=== PATIENT | male | born 1960 | race Hispanic/Latino ===

== ENCOUNTER 2018-10-26 01:01 | Inpatient (IN) | payer MEDICARE ==
[2018-10-26 01:11] VITALS: O2SAT 99
--- NOTE | 2018-10-26 01:14 | ED PDOC ---
Psych Transfer Clearance - Clearance Statement Clearance Statement: Reviewed vital signs, lab results and transfer papers. Patient clinically stable for psychiatric admission.
[2018-10-26] MEDS ORDERED: Magnesium Hydroxide Susp 30 ml UD PO PRN (01:41)
[2018-10-26] MEDS ORDERED: DiphenhydrAMINE 50 mg/ml Inj IM PRN (01:41)
[2018-10-26] MEDS ORDERED: Alum-Mag Hydrox-Simethicone Susp (30 mL) PO PRN (01:41)
--- NOTE | 2018-10-26 02:04 | PCM.BM ---
<Grace Liangar - Last Filed: 10/26/18 02:04> Treatment Plan Problems - Problems identified on initial assessmt Hopelessness/Helplessness Date Initiated: 10/26/18 Time Initiated: 02:01 Assessment reference: NA Status: Active Priority: 1 Feeling of Worthlessness Date Initiated: 10/26/18 Time Initiated: 02:02 Assessment reference: NA Status: Active Priority: 2 Altered Sleep Patterns Date Initiated: 10/26/18 Time Initiated: 02:02 Assessment reference: NA Status: Active Priority: 3 Treatment assets and liabiliti Patient Assests: adapts well, cooperative, educated, resourceful, negotiates basic needs Patient Liabilities: live alone, financial problems, poor support system, relationship conflicts, substance abuse (marijuana use and alcohol abuse), legal issue (restraining order for assualt with ) - Milieu Protocol Maintain good personal hygiene: daily Encourage regular showers, daily Remind patient to perform daily oral care, daily Assist patient to perform ADL's Maintain personal safety: every shift Educate patient to report safety concerns to staff, every shift Monitor environment for contraband/sharps Medication safety: Monitor for expected outcome, potential side effects: every shift, Assess barriers to learning: every shift, Assess readiness for medication education: every shift <Larissa Huitron - Last Filed: 10/26/18 10:34> - Diagnosis (1) Major depressive disorder Status: Acute Interventions: Medication management, Individual and group therapy, Psychoeducation 10/26/18 10:34 (2) Alcohol abuse Status: Acute Interventions: Medication management, Individual and group therapy, Psychoeducation 10/26/18 10:34 <Anupama Garcia - Last Filed: 10/27/18 14:11> Treatment Plan Problems - Problems identified on initial assessmt Suicide Date Initiated: 10/27/18 Time Initiated: 13:54 Assessment reference: SW Status: Active (Pt continues to verbalize suicide ideation/thoughts due to unstable housing, financial issues and legal issues.) Family Contact Family involvement: Famliy/SO not involved Family contact: Other (Pt unable to contact spouse due to active restraining order. ) - Goals for Treatment Patient goals for treatment: Pt will imporve overall mood. Pt will be free of suicide ideation. Pt will be explore and resolve stress from familial conflicts. Pt will learn to cope with routine life stressors and take things for stride. Pt will learn to use meditation and relaxation techniques daily. Pt will develop strategies for thought distraction when reuminating on the past. Discharge/Continuing Care - Education Needs Education Needs: Patient Medication, Patient Diagnosis/Disease Process, Patient Coping Skills, Patient Community resources, Patient Activities of Daily Living, Patient Nutrition, Patient Uses of Medical Equipment, Patient Health Practices/Safety, Patient Personal Hygiene/Grooming - Discharge Discharge Criteria: Tolerates medication w/o severe side effects, Free of Suicidal thoughts, Free of agitation, Normal sleep pattern, Ability to care for self, Reduction of target symptoms Discharge to:: Care Home - Additional Comments 10/27/18 14:06 Pt discussed in team meeting. Pt did not attend team meeting due to being observed asleep and not able to be aroused. Prior to team meeting pt was anxious and Ativan offered. Pt agreeable to PRN. Reason for admission reviewed and discussed. Pt was a transfer from [facility] secondary to increased depression and suicide ideation with plan to hang himself with a t- shirt. Pt reported feeling hopeless and helpless due to several stressors. Pt reported he is currently homeless and has been staying on the street or in shelters. Pt reported recent legal issues - father in law and spouse filed a restraining order against pt. Pt reported financial issues due to lack of state of ID. Pt reported he is unable to withdrawn his money because he lost his wallet with the [employer] card and the bank will not permit him to withdrawn money bec ause he does not have any form of ID. Pt reported poor sleep and appetite as a result of unstable housing. Pt's medical and social issues reviewed. Pt's medications reviewed. Tx plan reviewed. SW to continue to follow case. - Treatment Team Participation Discussed with Family/SO: No Was Patient/Family/SO present at Treatment Team Meeting: No
--- NOTE | 2018-10-26 09:36 | PCM.PSYCH ---
Initial Psychiatric Evaluation - Initial Psychiatric Evaluation Type of Admission: Voluntary Legal Status: Capacity Chief Complaint (in patient's own words): "I'm having suicidal thoughts." Patient's Reaction to Hospitalization: HPI: 58 yo male w/ h/o depression, presents w/ worsening depression, suicidal ideation w/ plan to hang himself, feelings of hopelessness/helplessness, sleep/appetite disturbances in the context of non-compliance with medications, having a restraining order against him by his [id number] and being homeless. No AH/VH/paranoia/delusions/HI. +Poor self care and hygiene. No current signs/symptoms of ETOH withdrawal. PMHx: +Pacemaker, hypothyroid, HTN, chronic back pain PPHx: Denies h/o of suicide attempts; currently prescribed Lexapro 20 mg PO Daily, but patient has been non-compliant with medication SHx: , homeless, smokes 3/4 ppd; stopped drinking ETOH 5 days, was previously drinking 1 pint daily, various days a week; +intermittent marijuana abuse ALL: NKDA Current Medications: Active Medications Generic Name Dose Route Start Last Admin Trade Name Freq PRN Reason Stop Dose Admin Acetaminophen 650 mg 10/26/18 01:41 Tylenol 325mg Tab PO Q4 PRN for 4-7 pain Al Hydrox/Mg Hydrox/Simethicone 30 ml 10/26/18 01:41 Maalox Plus 30 Ml PO Q4 PRN Dyspepsia Clopidogrel Bisulfate 75 mg 10/26/18 09:30 Plavix PO DAILY NUVIA Diphenhydramine HCl 50 mg 10/26/18 01:41 Benadryl IM Q6 PRN Extrapyramidal S/S Unable PO Diphenhydramine HCl 50 mg 10/26/18 01:41 Benadryl PO Q6 PRN Extrapyramidal Symptoms Diphenhydramine HCl 50 mg 10/26/18 01:41 Benadryl PO HS PRN Sleep Escitalopram Oxalate 20 mg 10/26/18 09:30 Lexapro PO DAILY NUVIA Folic Acid 1 mg 10/26/18 09:30 Folic Acid PO DAILY [facility]IA Haloperidol 5 mg 10/26/18 01:41 Haldol PO Q4 PRN Agitation Haloperidol Lactate 5 mg 10/26/18 01:41 Haldol IM Q4 PRN Agitation, Unable to Take PO Lorazepam 2 mg 10/26/18 02:09 Ativan IM Q6 PRN Anxiety/Agitation,Unable PO Lorazepam 1 mg 10/26/18 02:09 Ativan PO Q6 PRN Anxiety/Agitation Magnesium Hydroxide 30 ml 10/26/18 01:41 Milk Of Magnesia PO HS PRN Constipation Multivitamins/Minerals 1 tab 10/26/18 09:30 Therapeutic-M Tab PO DAILY NUVIA Nicotine 1 patch 10/26/18 09:30 Nicoderm Cq TD DAILY N[facility] Thiamine HCl 100 mg 10/26/18 09:30 Vitamin B1 Tab PO DAILY N[facility] Past Psychiatric History - Past Psychiatric History Pertinent Medical Hx (Current Medical&Sleep Prob, Allergies): Allergies Allergy/AdvReac Type Severity Reaction Status Date / Time No Known Allergies Allergy Verified 10/26/18 01:11 No Known Home Med 10/26/18 Review of Systems - Psychiatric Psychiatric: As Per HPI, Abnormal Sleep Pattern, Anhedonia, Anxiety, Behavioral Changes, Change in Appetite, Depression, Difficulty Concentrating, Hopelessness, Irritability, Suicidal Ideation Mental Status Examination - Personal Presentation Personal Presentation: Looks older than stated age - Affect Affect: Depressed - Motor Activity Motor Activity: Calm - Reliability in Providing Information Reliability in Providing Information: Fair - Speech Speech: Organized, Coherent - Mood Mood: Depressed - Formal Thought Process Formal Thought Process: No Impairment - Hallucinations/Delusions Additional comments: No AH/VH/paranoia/delusions - Obsessions/Compulsions Obsessions: No Compulsions: No - Cognitive Functions Orientation: Person, Place, Situation, Time Sensorium: Alert Attention/Concentration: Attentive Estimate of Intelligence: Average Judgement: Intact, as evidence by: Insight regarding need for hospitalization Memory: Recent intact, as evidence by: Ability to recall events of the day - Risk Risk: Suicidal, Diminished functioning - Strength & Assets Inventory Strength & Assets Inventory: Cooperative - Limitations Limitations: Other (Homeless, Poverty) DSM 5 DX - DSM 5 DSM 5 Diagnosis: Major Depressive Disorder; Alcohol Use Disorder; Cannabis Use Disorder - Recommended/Plan of Treatment Treatment Recommendations and Plan of Treatment: Major Depressive Disorder; Alcohol Use Disorder; Cannabis Use Disorder -Admit to psychiatry unit -Individual and group therapy -Medicine consult -Nicotine patch -Restart Lexapro -PT screening -Thiamine/Folate/MVI -Disposition planning
[2018-10-26 09:59] LABS: BASO % 0.7 % (0.0-2.0); EOS # 0.1 K/uL (0.0-0.7); EOS % 2.1 % (0.0-4.0); HEMOGLOBIN 13.1 g/dL (12.0-18.0); LYMPH # 1.7 K/uL (1.0-4.3); LYMPH % 26.4 % (20.0-40.0); MEAN CELL VOLUME 99.9 fl (80.0-94.0); MEAN CORPUSCULAR HEMOGLOBIN 33.8 pg (27.0-31.0); MEAN CORPUSCULAR HGB CONC 33.9 g/dL (33.0-37.0); MEAN PLATELET VOLUME 7.2 fl (7.2-11.7); MONO # 0.7 K/uL (0.0-0.8); MONO % 11.3 % (0.0-10.0); NEUT # 3.8 K/uL (1.8-7.0); NEUT % 59.5 % (50.0-75.0); NRBC % 0.1 % (0.0-0.0); RBC 3.88 Mil/uL (4.40-5.90); RED CELL DISTRIBUTION WIDTH 16.1 % (11.5-14.5); WHITE BLOOD COUNT 6.3 K/uL (4.8-10.8)
[2018-10-26 10:29] LABS: ALB/GLOB RATIO 1.1 (1.0-2.1); ALBUMIN 3.4 g/dL (3.5-5.0); ALT/SGPT 19 U/L (21-72); AST/SGOT 35 U/L (17-59); BLOOD UREA NITROGEN 6 mg/dl (9-20); CALCIUM 9.1 mg/dL (8.4-10.2); GFR NON-AFRICAN AMERICAN > 60; HDL CHOLESTEROL 67 MG/DL (30-70)
[2018-10-26 10:40] LABS: LDL CHOLESTEROL 74 mg/dL (0-129)
[2018-10-26] MEDS: Multivitamin With Minerals Tab PO SCH (11:45)
--- NOTE | 2018-10-26 14:45 | CP.PCM.CON ---
History of Present Illness - History of Present Illness History of Present Illness: 58 yo male with history of CHF with AICD, HTN and depression admitted to psyche unit because of suicidal ideation. Review of Systems - Review of Systems All systems: reviewed and no additional remarkable complaints except (aside from those mentioned above, 12 point system review were negative by me) Past Patient History - Tetanus Immunizations Tetanus Immunization: Unknown - Past Social History Smoking Status: Heavy Smoker > 10 Cigarettes Daily Alcohol: > 2 Drinks/Day Home Situation {Lives}: Homeless - CARDIAC Hx Circulatory Problems: Yes (cardiomyopathy) - MUSCULOSKELETAL/RHEUMATOLOGICAL Hx Falls: Yes Other/Comment: pinched nerve - PSYCHIATRIC Hx Substance Use: Yes - ANESTHESIA Hx Anesthesia: Yes Hx Anesthesia Reactions: No Has any member of the family had a problem w/ anesthesia?: No Meds Allergies/Adverse Reactions: Allergies Allergy/AdvReac Type Severity Reaction Status Date / Time No Known Allergies Allergy Verified 10/26/18 01:11 - Medications Medications: Current Medications Acetaminophen (Tylenol 325mg Tab) 650 mg PO Q4 PRN PRN Reason: for 4-7 pain Al Hydrox/Mg Hydrox/Simethicone (Maalox Plus 30 Ml) 30 ml PO Q4 PRN PRN Reason: Dyspepsia Aspirin (Ecotrin) 81 mg PO DAILY [facility] Clopidogrel Bisulfate (Plavix) 75 mg PO DAILY [facility] Digoxin (Digoxin) 0.125 mg PO DAILY [facility] Diphenhydramine HCl (Benadryl) 50 mg IM Q6 PRN PRN Reason: Extrapyramidal S/S Unable PO Diphenhydramine HCl (Benadryl) 50 mg PO Q6 PRN PRN Reason: Extrapyramidal Symptoms Diphenhydramine HCl (Benadryl) 50 mg PO HS PRN PRN Reason: Sleep Escitalopram Oxalate (Lexapro) 20 mg PO DAILY [facility] Folic Acid (Folic Acid) 1 mg PO DAILY [facility] Last Admin: 10/26/18 11:45 Dose: 1 mg Haloperidol (Haldol) 5 mg PO Q4 PRN PRN Reason: Agitation Haloperidol Lactate (Haldol) 5 mg IM Q4 PRN PRN Reason: Agitation, Unable to Take PO Levothyroxine Sodium (Synthroid) 100 mcg PO DAILY [facility] Lorazepam (Ativan) 2 mg IM Q6 PRN PRN Reason: Anxiety/Agitation,Unable PO Lorazepam (Ativan) 0.5 mg PO Q6 PRN PRN Reason: Anxiety Last Admin: 10/26/18 11:44 Dose: 0.5 mg Losartan Potassium (Cozaar) 12.5 mg PO DAILY [facility] Magnesium Hydroxide (Milk Of Magnesia) 30 ml PO HS PRN PRN Reason: Constipation Metoprolol Succinate (Toprol Xl) 12.5 mg PO DAILY [facility] Multivitamins/Minerals (Therapeutic-M Tab) 1 tab PO DAILY [facility] Last Admin: 10/26/18 11:45 Dose: 1 tab Nicotine (Nicoderm Cq) 1 patch TD DAILY [facility] Last Admin: 10/26/18 11:46 Dose: 1 patch Spironolactone (Aldactone) 25 mg PO DAILY [facility] Thiamine HCl (Vitamin B1 Tab) 100 mg PO DAILY [facility] Last Admin: 10/26/18 11:45 Dose: 100 mg Physical Exam - Constitutional Appears: No Acute Distress - Head Exam Head Exam: ATRAUMATIC - Eye Exam Eye Exam: absent: Scleral icterus - ENT Exam ENT Exam: Mucous Membranes Moist - Neck Exam Neck exam: Negative for: Meningismus - Respiratory Exam Respiratory Exam: absent: Rales, Rhonchi, Wheezes, Respiratory Distress - Cardiovascular Exam Cardiovascular Exam: REGULAR RHYTHM, +S1, +S2 - GI/Abdominal Exam GI & Abdominal Exam: Soft. absent: Tenderness - Rectal Exam Rectal Exam: Deferred - Neurological Exam Neurological exam: Alert, Oriented x3 - Psychiatric Exam Psychiatric exam: Normal Affect - Skin Skin Exam: Dry, Intact Results - Vital Signs Recent Vital Signs: Last Vital Signs Temp 97.9 F 10/26/18 06:00 Pulse 99 H 10/26/18 06:00 Resp 19 10/26/18 06:00 BP 109/72 10/26/18 06:00 Pulse Ox 99 10/26/18 01:08 - Labs Result Diagrams: 10/26/18 09:54 10/26/18 09:54 Labs: Laboratory Results - last 24 hr 10/26/18 10/26/18 10/26/18 09:54 09:54 09:54 WBC 6.3 RBC 3.88 L Hgb 13.1 Hct 38.8 MCV 99.9 H MCH 33.8 H MCHC 33.9 RDW 16.1 H Plt Count 279 MPV 7.2 Neut % (Auto) 59.5 Lymph % (Auto) 26.4 Schleicher % (Auto) 11.3 H Eos % (Auto) 2.1 Baso % (Auto) 0.7 Neut # (Auto) 3.8 Lymph # (Auto) 1.7 Schleicher # (Auto) 0.7 Eos # (Auto) 0.1 Baso # (Auto) 0.0 Sodium 130 L Potassium 3.4 L Chloride 94 L Carbon Dioxide 28 Anion Gap 11 BUN 6 L Creatinine 0.6 L Est GFR ( Amer) > 60 Est GFR (Non-Af Amer) > 60 Random Glucose 150 H Hemoglobin A1c 5.2 Calcium 9.1 Total Bilirubin 0.5 AST 35 ALT 19 L Alkaline Phosphatase 96 Total Protein 6.4 Albumin 3.4 L Globulin 3.0 Albumin/Globulin Ratio 1.1 Triglycerides 75 Cholesterol 158 LDL Cholesterol Direct 74 HDL Cholesterol 67 TSH 3rd Generation 37.40 H Assessment & Plan (1) Suicidal ideation Status: Acute Comment: psyche is managing (2) HTN (hypertension) Status: Chronic Comment: BP stable. continue Lopressor
[2018-10-26 18:51] LABS: IRON 88 ug/dL (49-181)
[2018-10-26 19:02] LABS: % IRON SATURATION 37 % (20-55); TOTAL IRON BINDING CAPACITY 238 ug/dL (250-450)
[2018-10-26 19:11] LABS: T4 4.94 ug/dl (5.5-11.0)
[2018-10-27 00:30] LABS: SQUAMOUS EPITHIAL < 1 /hpf (0-5); URINE BACTERIA RARE (<OCC); URINE BILIRUBIN NEGATIVE (NEGATIVE); URINE BLOOD NEGATIVE (NEGATIVE); URINE CLARITY CLEAR (Clear); URINE COLOR YELLOW (YELLOW); URINE GLUCOSE (UA) NEG (NEGATIVE); URINE LEUKOCYTE ESTERASE NEG Leu/uL (Negative); URINE PROTEIN NEGATIVE (NEGATIVE); URINE UROBILINOGEN 0.2-1.0 mg/dL (0.2-1.0)
[2018-10-27] MEDS: Digoxin 125 mcg (0.125 mg) Tab PO SCH (09:20)
[2018-10-27] MEDS: Levothyroxine 100 MCG TAB PO SCH (09:21)
[2018-10-27] MEDS: Multivitamin With Minerals Tab PO SCH (09:21)
--- NOTE | 2018-10-27 10:00 | PCM.PYCHPN ---
Psychiatric Progress Note - Psychiatric Progress Note Patient seen today, length of contact: Pt evaluated, case discussed w/ team, chart reviewed Patient Chief Complaint: "I'm having suicidal thoughts." Problems Identified/Issues Discussed: Patient continues to report suicidal ideation w/ plan to hang himself or "do whatever I can." He cries spontaneously and reports depressed mood w/ feelings of hopelessness/helplessness. He reports sleep and appetite disturbances. Medication Change: Yes (Start Remeron 15 mg PO HS) Medical Record Reviewed: Yes Consults ordered or reviewed: Medicine consult Mental Status Examination - Cognitive Function Orientation: Person, Place, Situation, Time Memory: Intact Association: WNL Fund of Knowledge: [facility] Decription of patient's judgement and insights: Improving I/J - Mood Mood: Depressed - Affect Affect: Depressed - Speech Speech: Appropriate - Formal Thought Process Formal Thought Process: No Impairment Psychotic Thoughts and Behaviors: No AH/VH/paranoia/delusions - Suicidal Ideation Suicidal Ideation: No - Homicidal Ideation Homicidal Ideation: No Goal/Treatment Plan - Goal/Treatment Plan Need for Continued Stay: Remain at risks for inpatient hospitalization, Severe depression anxiety Progress Toward Problem(s) and Goals/Treatment Plan: Major Depressive Disorder; Alcohol Use Disorder; Cannabis Use Disorder -Individual and group therapy -Medicine consult appreciated -Nicotine patch -Continue Lexapro -Start Remeron -Thiamine/Folate/MVI -Ativan PRN; no current signs/symptoms of etoh withdrawal -Disposition planning
[2018-10-27] MEDS: Metoprolol Succinate 25 mg XL Tab PO SCH (14:49)
[2018-10-28] MEDS: Digoxin 125 mcg (0.125 mg) Tab PO SCH (08:47)
[2018-10-28] MEDS: Multivitamin With Minerals Tab PO SCH (08:49)
[2018-10-28] MEDS: Metoprolol Succinate 25 mg XL Tab PO SCH (08:50)
--- NOTE | 2018-10-28 09:20 | PCM.PYCHPN ---
Psychiatric Progress Note - Psychiatric Progress Note Patient seen today, length of contact: Pt evaluated, case discussed w/ team, chart reviewed Patient Chief Complaint: "I'm having suicidal thoughts." Problems Identified/Issues Discussed: Patient continues to report feeling depressed, anxious w/ feeling of hopelessness and intermittent suicidal ideation. He reports sleep and appetite disturbances. Medication Change: No Medical Record Reviewed: Yes Consults ordered or reviewed: Medicine consult Mental Status Examination - Cognitive Function Orientation: Person, Place, Situation, Time Memory: Intact Association: WNL Fund of Knowledge: [facility] Decription of patient's judgement and insights: Improving I/J - Mood Mood: Depressed - Affect Affect: Depressed - Speech Speech: Appropriate - Formal Thought Process Formal Thought Process: No Impairment Psychotic Thoughts and Behaviors: No AH/VH/paranoia/delusions - Suicidal Ideation Suicidal Ideation: Yes Plan: Ideation to hang himself - Homicidal Ideation Homicidal Ideation: No Goal/Treatment Plan - Goal/Treatment Plan Need for Continued Stay: Remain at risks for inpatient hospitalization, Severe depression anxiety Progress Toward Problem(s) and Goals/Treatment Plan: Major Depressive Disorder; Alcohol Use Disorder; Cannabis Use Disorder -Individual and group therapy -Medicine consult appreciated -Nicotine patch -Continue Lexapro -Continue Remeron -Thiamine/Folate/MVI -Ativan PRN; no current signs/symptoms of etoh withdrawal -Disposition planning Estimated Date of D/C: 11/01/18
[2018-10-28] MEDS: Levothyroxine 100 MCG TAB PO SCH (13:01)
[2018-10-29] MEDS: Digoxin 125 mcg (0.125 mg) Tab PO SCH (08:36)
[2018-10-29] MEDS: Multivitamin With Minerals Tab PO SCH (08:37)
[2018-10-29] MEDS: Levothyroxine 100 MCG TAB PO SCH (08:40)
[2018-10-29 08:45] LABS: HEMOGLOBIN 12.8 g/dL (12.0-18.0); MEAN CELL VOLUME 101.7 fl (80.0-94.0); MEAN CORPUSCULAR HEMOGLOBIN 33.7 pg (27.0-31.0); MEAN CORPUSCULAR HGB CONC 33.2 g/dL (33.0-37.0); RBC 3.8 Mil/uL (4.40-5.90); RED CELL DISTRIBUTION WIDTH 16.2 % (11.5-14.5); WHITE BLOOD COUNT 4.6 K/uL (4.8-10.8)
[2018-10-29 08:51] LABS: ALB/GLOB RATIO 1.1 (1.0-2.1); ALBUMIN 3.1 g/dL (3.5-5.0); ALT/SGPT 33 U/L (21-72); AST/SGOT 30 U/L (17-59); BLOOD UREA NITROGEN 8 mg/dl (9-20); CALCIUM 8.9 mg/dL (8.4-10.2); GFR NON-AFRICAN AMERICAN > 60
--- NOTE | 2018-10-29 09:04 | PCM.PYCHPN ---
Psychiatric Progress Note - Psychiatric Progress Note Patient seen today, length of contact: Pt evaluated, case discussed w/ team, chart reviewed Patient Chief Complaint: Depression Problems Identified/Issues Discussed: Patient continues to report feeling depressed and anxious, but he denies acute suicidal ideation/plan/intent. No adverse effects to medications reported. He continues to have constricted affect and feelings of hopelessness. Medication Change: No Medical Record Reviewed: Yes Consults ordered or reviewed: Medicine consult Mental Status Examination - Cognitive Function Orientation: Person, Place, Situation, Time Memory: Intact Association: WNL Fund of Knowledge: [facility] Decription of patient's judgement and insights: Improving I/J - Mood Mood: Depressed - Affect Affect: Constricted, Depressed - Speech Speech: Appropriate - Formal Thought Process Formal Thought Process: No Impairment Psychotic Thoughts and Behaviors: No AH/VH/paranoia/delusions - Suicidal Ideation Suicidal Ideation: No - Homicidal Ideation Homicidal Ideation: No Goal/Treatment Plan - Goal/Treatment Plan Need for Continued Stay: Remain at risks for inpatient hospitalization, Severe depression anxiety Progress Toward Problem(s) and Goals/Treatment Plan: Major Depressive Disorder; Alcohol Use Disorder; Cannabis Use Disorder -Individual and group therapy -Medicine consult appreciated -Nicotine patch -Continue Lexapro -Continue Remeron -Thiamine/Folate/MVI -Ativan PRN; no current signs/symptoms of etoh withdrawal -Disposition planning Estimated Date of D/C: 11/01/18
[2018-10-29] MEDS: Metoprolol Succinate 25 mg XL Tab PO SCH (13:58)
--- NOTE | 2018-10-30 08:49 | PCM.PYCHPN ---
Psychiatric Progress Note - Psychiatric Progress Note Patient seen today, length of contact: Pt evaluated, case discussed w/ team, chart reviewed Patient Chief Complaint: Depression Problems Identified/Issues Discussed: Patient continues to report feeling depressed and anxious, w/ feeling of hopelessness and low motivation. He denies acute suicidal ideation/plan/intent. No adverse effects to medications reported. He reports that his sleep and appetite are starting to improve. Medication Change: No Medical Record Reviewed: Yes Consults ordered or reviewed: Medicine consult Mental Status Examination - Cognitive Function Orientation: Person, Place, Situation, Time Memory: Intact Attention: WNL Concentration: WNL Association: WN Fund of Knowledge: [facility] Decription of patient's judgement and insights: Improving I/J - Mood Mood: Depressed - Affect Affect: Constricted, Depressed - Speech Speech: Appropriate - Formal Thought Process Formal Thought Process: No Impairment Psychotic Thoughts and Behaviors: No AH/VH/paranoia/delusions - Suicidal Ideation Suicidal Ideation: No - Homicidal Ideation Homicidal Ideation: No Goal/Treatment Plan - Goal/Treatment Plan Need for Continued Stay: Remain at risks for inpatient hospitalization, Severe depression anxiety Progress Toward Problem(s) and Goals/Treatment Plan: Major Depressive Disorder; Alcohol Use Disorder; Cannabis Use Disorder -Individual and group therapy -Medicine consult appreciated -Nicotine patch -Continue Lexapro -Continue Remeron -Thiamine/Folate/MVI -Ativan PRN; no current signs/symptoms of etoh withdrawal -Disposition planning Estimated Date of D/C: 11/01/18
[2018-10-30] MEDS: Digoxin 125 mcg (0.125 mg) Tab PO SCH (08:56)
[2018-10-30] MEDS: Metoprolol Succinate 25 mg XL Tab PO SCH (08:57)
[2018-10-30] MEDS: Multivitamin With Minerals Tab PO SCH (08:58)
[2018-10-30] MEDS: Levothyroxine 100 MCG TAB PO SCH (08:59)
[2018-10-31] MEDS: Metoprolol Succinate 25 mg XL Tab PO SCH (08:42)
[2018-10-31] MEDS: Digoxin 125 mcg (0.125 mg) Tab PO SCH (08:43)
[2018-10-31] MEDS: Multivitamin With Minerals Tab PO SCH (08:43)
--- NOTE | 2018-10-31 09:32 | PCM.PYCHPN ---
Psychiatric Progress Note - Psychiatric Progress Note Patient seen today, length of contact: Pt evaluated, case discussed w/ team, chart reviewed Patient Chief Complaint: Depression Problems Identified/Issues Discussed: Patient reports that his mood is improving. He is more goal oriented and is making plans on how to set up housing for himself. He denies acute AH/VH/SI/HI. No adverse effects to medications reported. Medication Change: No Medical Record Reviewed: Yes Consults ordered or reviewed: Medicine consult Mental Status Examination - Cognitive Function Orientation: Person, Place, Situation, Time Memory: Intact Attention: WNL Concentration: WNL Association: WNL Fund of Knowledge: [facility] Decription of patient's judgement and insights: Improving I/J - Mood Mood: Depressed - Affect Affect: Constricted, Depressed - Speech Speech: Appropriate - Formal Thought Process Formal Thought Process: No Impairment Psychotic Thoughts and Behaviors: No AH/VH/paranoia/delusions - Suicidal Ideation Suicidal Ideation: No - Homicidal Ideation Homicidal Ideation: No Goal/Treatment Plan - Goal/Treatment Plan Need for Continued Stay: Remain at risks for inpatient hospitalization, Severe depression anxiety Progress Toward Problem(s) and Goals/Treatment Plan: Major Depressive Disorder; Alcohol Use Disorder; Cannabis Use Disorder -Individual and group therapy -Medicine consult appreciated -Nicotine patch -Continue Lexapro -Continue Remeron -Thiamine/Folate/MVI -Ativan PRN; no current signs/symptoms of etoh withdrawal -Disposition planning- patient is improving clinically; will likely discharge tomorrow Estimated Date of D/C: 11/01/18
[2018-10-31] MEDS: Levothyroxine 100 MCG TAB PO SCH (12:30)
[2018-11-01 06:22] VITALS: PULSE 80; RESP 20
--- NOTE | 2018-11-01 08:11 | PCM.PYCHDC ---
Mental Status Examination - Mental Status Examination Orientation: Person, Place, Situation, Time Memory: Intact Mood: Neutral Affect: Broad Speech: Appropriate Attention: WNL Concentration: WNL Association: WNL Fund of Knowledge: WNL Formal Thought Process: No Impairment Description of patient's judgement and insight: Fair I/J Psychotic Thoughts and Behaviors: No AH/VH/paranoia/delusions Suicidal Ideation: No Current Homicidal Ideation?: No Discharge Summary - Discharge Note Reason for Hospitalization: HPI: 58 yo male w/ h/o depression, presents w/ worsening depression, suicidal ideation w/ plan to hang himself, feelings of hopelessness/helplessness, sleep/appetite disturbances in the context of non-compliance with medications, having a restraining order against him by his [id number] and being homeless. No AH/VH/paranoia/delusions/HI. +Poor self care and hygiene. No current signs/symptoms of ETOH withdrawal. PMHx: +Pacemaker, hypothyroid, HTN, chronic back pain PPHx: Denies h/o of suicide attempts; currently prescribed Lexapro 20 mg PO Daily, but patient has been non-compliant with medication SHx: , homeless, smokes 3/4 ppd; stopped drinking ETOH 5 days, was previously drinking 1 pint daily, various days a week; +intermittent marijuana abuse ALL: NKDA Consultations:: List each consultation separately and include: 1. Reason for request. 2. Findings. 3. Follow-up Consultations: Medicine consult Summary of Hospital Course include:: 1. Description of specific treatment plan utilized for patients during their course of treatmen. 2. Summarize the time- course for resolution of acute symptoms and/or regressed behaviors. 3. Describe issues identified and worked on during hospitalization. 4. Describe medication utilized. 5. Describe medical problems identified and treated. 6. Reassessment of suicide risk Summary of Hospital Course: Patient was admitted to the psychiatry unit. Individual and group therapy were provided. Patient was stabilized on Lexapro 20 mg PO Daily and Remeron 15 mg PO HS. He was evaluated by the medicine personal consultant and his medical medications were prescribed as indicated by the medicine personal consultant. Patient denies acute depression/anxiety/AH/VH/paranoia/delusions/SI/HI. He is currently psychiatrically stable for discharge with outpatient follow-up. - Diagnosis (1) Major depressive disorder Current Visit: Yes Status: Chronic (2) Alcohol abuse Current Visit: Yes Status: Chronic - Final Diagnosis (DSM 5) Condition upon Discharge: STABLE DSM 5: Major Depressive Disorder; Alcohol Use Disorder; Cannabis Use Disorder Disposition: HOME/ ROUTINE Follow-up Treatment Plan: Major Depressive Disorder; Alcohol Use Disorder; Cannabis Use Disorder -Individual and group therapy -Medicine consult appreciated; will continued medical medications as per personal consultant recommendations -Nicotine patch prescribed during admission -Continue Lexapro -Continue Remeron -Thiamine/Folate/MVI Prescriptions/Medication Reconciliation: Aspirin [Lo-Dose Aspirin EC] 81 mg PO DAILY #30 tablet. Clopidogrel [Plavix] 75 mg PO DAILY #30 tab Digoxin [Digitek] 125 mcg PO DAILY #30 tablet Escitalopram [Lexapro] 20 mg PO DAILY #30 tab Levothyroxine [Synthroid] 100 mcg PO DAILY #30 tab Losartan [Cozaar] 12.5 mg PO DAILY #30 tab Metoprolol Succinate XL [Toprol XL] 12.5 mg PO DAILY #30 tab Mirtazapine [Remeron] 15 mg PO HS #30 tab Nicotine 21 mg/24 hr [Nicoderm Cq] 1 patch TD DAILY #30 patch Spironolactone [Aldactone] 25 mg PO DAILY #30 tab - Smoking Cessation Smoking Cessation Medication prescribed: Yes Reason for not providing: Prescribed during admission; pt declined outpatient prescription - Antipsychotic Medications Pt discharged on 2 or more routine antipsychotic medications: No
[2018-11-01] MEDS: Digoxin 125 mcg (0.125 mg) Tab PO SCH (08:15)
[2018-11-01] MEDS: Levothyroxine 100 MCG TAB PO SCH (08:16)
[2018-11-01] MEDS: Multivitamin With Minerals Tab PO SCH (08:16)
[2018-11-01] MEDS: Metoprolol Succinate 25 mg XL Tab PO SCH (08:21)
[2018-11-01 08:22] VITALS: PULSE 80
[2018-11-01 08:53] VITALS: BP 118/72; TEMP 98
== END 2018-11-01 13:40 | disposition home or self-care (01) | DRG 881 ==
LOC: H.ER 01:01 → H.STEP 01:12
PROVIDERS: ADMIT Psychiatry & Neurology Psychiatry; ATTEND Psychiatry & Neurology Psychiatry
PROC: HZ56ZZZ Individual Psychotherapy for Substance Abuse Treatment, Psychoeducation (ICD-10-PCS; principal; 2018-10-26)
PROC: GZHZZZZ Group Psychotherapy (ICD-10-PCS; 2018-10-26)
DX: F32.9 Major depressive disorder, single episode, unspecified (principal); R45.851 Suicidal ideations; I42.9 Cardiomyopathy, unspecified; Z72.89 Other problems related to lifestyle; F12.90 Cannabis use, unspecified, uncomplicated; Z91.14 Patient's other noncompliance with medication regimen; E03.9 Hypothyroidism, unspecified; I11.0 Hypertensive heart disease with heart failure; I50.9 Heart failure, unspecified; Z59.0 Homelessness; F17.210 Nicotine dependence, cigarettes, uncomplicated; G89.29 Other chronic pain; Z95.810 Presence of automatic (implantable) cardiac defibrillator